=== PATIENT | male | born 1985 | race African-American/Black ===

== ENCOUNTER 2016-12-08 13:37 | Emergency (ER) | payer MEDICAID ==
[~2016-12-08] VITALS: Ht 167.6 cm; Wt 71.0 kg
[~2016-12-08 13:37] MED LIST: Z.0.NO CURRENT MEDS
[2016-12-08 13:38] VITALS: BP 137/74; PULSE 86; RESP 20; TEMP 98.7; O2SAT 100
[2016-12-08] MEDS ORDERED: RISP0.5T20 PO (14:34)
--- NOTE | 2016-12-08 14:37 | PD ---
HPI . left sided neck/jaw swelling and pain Chief Complaint: Facial Pain or Swelling Time Seen by Provider: 14:28 Travel History International Travel<30 days: No Contact w/Intl Traveler<30days: No Traveled to known affect area: No History of Present Illness HPI 31-year-old male with no significant PMH here accompanied by his mom and dad, who brought him in due to neck/jaw swelling x 2 days. They think something bit him. He is a man "of few words." He doesn't really have any complaints and was forced in by them. He denies any tooth pain, fever, chills, neck pain, sob, difficulty swallowing etc. PFSH Past Medical History Hx Anticoagulant Therapy: No Cardiovascular Problems: No Chemotherapy: No Cerebrovascular Accident: No Diabetes: No Diminished Hearing: No Respiratory: No Seizures: Yes (FORM OF EPILEPSY. SHAKES THEN SWEATS(?)) Social History Alcohol Use: Yes (HOLIDAYS) Tobacco Use: Yes (1 pack/day) Allergies-Medications (Allergen,Severity, Reaction): Coded Allergies: No Known Allergies (Verified Allergy, Mild, 10/02/06) Reported Meds & Prescriptions Reported Meds & Active Scripts Active Reported Risperdal (Risperidone) 0.5 Mg Tab 0.5 Mg PO DAILY Review of Systems General / Constitutional: No: Fever Eyes: No: Visual changes HENT: Positive: Other (neck swelling/jaw swelling), No: Headaches Cardiovascular: No: Chest Pain or Discomfort Respiratory: No: Shortness of Breath Gastrointestinal: No: Abdominal Pain Genitourinary: No: Dysuria Musculoskeletal: No: Pain Skin: No Rash Neurologic: No: Weakness Psychiatric: No: Depression Endocrine: No: Polydipsia Hematologic/Lymphatic: No: Easy Bruising Physical Exam Narrative GENERAL: AAO x 3, no acute distress, Well-nourished, well-developed patient. SKIN: Warm and dry. No visible rashes or bruising. HEAD: Normocephalic and atraumatic. EYES: No scleral icterus. No injection or drainage. EOM intact, PERRLA ENT: No nasal drainage noted. Mucous membranes pink. Airway patent. TM normal. no visible dental issues other than plaque buildup. no inner mouth abnormalities. NECK: Supple, trachea midline. No JVD. + post auricular/mandibular and submandibular swelling; very firm, tender to touch. 4 x 5 cm CARDIOVASCULAR: Regular rate and rhythm without murmurs, gallops, or rubs. RESPIRATORY: Breath sounds equal bilaterally. No accessory muscle use. No rhonchi or rales. GASTROINTESTINAL: Abdomen soft, non-tender, nondistended. EXTREMITIES: No cyanosis or edema. BACK: Nontender without obvious deformity. No CVA tenderness. PSYCH: AAO x 3, normal affect. Data Data Last Documented VS Vital Signs Date Time Temp Pulse Resp B/P Pulse Ox O2 Delivery O2 Flow Rate FiO2 12/08/16 13:38 98.7 86 20 137/74 100 Room Air MDM Medical Decision Making Medical Screen Exam Complete: Yes Emergency Medical Condition: Yes Medical Record Reviewed: Yes Differential Diagnosis parotid gland abscess, lymphadenopathy, neck mass/malignancy Narrative Course 31 yr old male here with neck/face swelling x 2 days. This appears to be a possible parotid gland abscess vs. neck mass. He needs a medical bed as further imaging is necessary. He may also need some labs. 1437: med bed requested 1453: discussed with Dr. Waters. The next provider will determine disposition. Condition: Stable Dannielle Baez December 08, 2016 14:37
--- NOTE | 2016-12-08 15:10 | PD ---
Physical Exam Narrative Patient was initially seen in fast track and transferred to medical bed. Please see present provider's H&P for further details. Briefly patient comes in for evaluation of painful swelling on the left side of his neck that began 2 days ago. Patient denies anything making it better. Pain is worse palpation. Patient denies doing anything for this. Patient describes pain as a burning like pain without radiation. Denies any fevers, nausea, vomiting, sore throat, difficulty swallowing, testicular pain, chest pain, shortness breath, or anything like this in the past. Patient reports only medication he takes regularly is Risperdal for bipolar schizophrenia. GENERAL: Well-developed, well nourished, in no acute distress, and non-ill appearing. SKIN: Focused skin assessment warm and dry. HEAD: Atraumatic. Normocephalic. EYES: Pupils equal and round. EOMI. No scleral icterus. No injection or drainage. ENT: No nasal bleeding or discharge. Mucous membranes pink and moist. Posterior pharynx erythematous without exudate. Uvula is midline. Swelling and tenderness noted over left parotid gland. There is no definitive fluid collection palpable. There is no crepitus. NECK: Trachea midline. No JVD. Supple. No nuclear rigidity. RESPIRATORY: No accessory muscle use. No respiratory distress. MUSCULOSKELETAL: No obvious deformities. No clubbing. No cyanosis. No edema. Full range of motion. NEUROLOGICAL: Awake and alert. No obvious cranial nerve deficits. Motor grossly within normal limits. Normal speech. PSYCHIATRIC: Appropriate mood and affect; insight and judgment normal. Data Data Last Documented VS Vital Signs Date Time Temp Pulse Resp B/P Pulse Ox O2 Delivery O2 Flow Rate FiO2 12/08/16 17:11 16 12/08/16 15:26 98 12/08/16 13:38 98.7 86 137/74 Room Air Orders Basic Metabolic Panel (Bmp) (12/08/16 15:01) Complete Blood Count With Diff (12/08/16 15:01) Prothrombin Time / Inr (Pt) (12/08/16 15:01) Act Partial Throm Time (Ptt) (12/08/16 15:01) Iv Access Insert/Monitor (12/08/16 15:01) Ecg Monitoring (12/08/16 15:01) Oximetry (12/08/16 15:01) Morphine Inj (Morphine Inj) (12/08/16 15:15) Ondansetron Inj (Zofran Inj) (12/08/16 15:15) Sodium Chloride 0.9% Flush (Ns Flush) (12/08/16 15:15) Ct Soft Tiss Neck W Iv Cont (12/08/16 ) Iohexol 350 Inj (Omnipaque 350 Inj) (12/08/16 16:09) Labs Laboratory Tests Test 12/08/16 15:25 White Blood Count 6.4 TH/MM3 Red Blood Count 4.36 MIL/MM3 Hemoglobin 13.1 GM/DL Hematocrit 39.3 % Mean Corpuscular Volume 90.3 FL Mean Corpuscular Hemoglobin 30.0 PG Mean Corpuscular Hemoglobin 33.2 % Concent Red Cell Distribution Width 13.8 % Platelet Count 272 TH/MM3 Mean Platelet Volume 8.1 FL Neutrophils (%) (Auto) 68.2 % Lymphocytes (%) (Auto) 22.4 % Monocytes (%) (Auto) 6.8 % Eosinophils (%) (Auto) 1.4 % Basophils (%) (Auto) 1.2 % Neutrophils # (Auto) 4.4 TH/MM3 Lymphocytes # (Auto) 1.4 TH/MM3 Monocytes # (Auto) 0.4 TH/MM3 Eosinophils # (Auto) 0.1 TH/MM3 Basophils # (Auto) 0.1 TH/MM3 CBC Comment DIFF FINAL Differential Comment Prothrombin Time 10.7 SEC Prothromb Time International 1.0 RATIO Ratio Activated Partial 29.3 SEC Thromboplast Time Sodium Level 140 MEQ/L Potassium Level 4.8 MEQ/L Chloride Level 105 MEQ/L Carbon Dioxide Level 28.0 MEQ/L Anion Gap 7 MEQ/L Blood Urea Nitrogen 16 MG/DL Creatinine 0.95 MG/DL Estimat Glomerular Filtration 111 ML/MIN Rate Random Glucose 84 MG/DL Calcium Level 8.6 MG/DL [facility] Supervised Visit with ANNETTA: No Interpretation(s) CT soft tissue neck read by the radiologist shows: No definite acute abnormality is seen. The patient does have a paucity of fat making evaluation difficult. Despite this, a fluid collection or significant adenopathy is not seen. Differential Diagnosis Abscess, cellulitis, parotitis, sialolithiasis, other Narrative Course Patient in no obvious distress upon re-evaluation. All pertinent laboratory/ Radiology result(s) discussed with patient/family. Discussed patient with Dr. Waters, who saw and evaluated the patient and is in agreement with plan of care and disposition. Any questions/concerns in reference to patient diagnosis/ condition discussed and clarified prior to patient's discharge. Reinforced sheer importance of close follow up with patient's primary physician or primary care clinic. Instructed patient to return to ED immediately, if symptoms return/ worsen. Pt showed understanding of above instructions. Further instructions and recommendations were detailed in discharge paperwork. Pt ambulated without difficulty out of ED at discharge. Diagnosis Primary Impression: Left facial swelling Referrals: Manny Manuel MD Patient Instructions: General Instructions Additional Instruction: Follow-up with your primary care physician and/or ENT in 2-3 days for reevaluation. Use [id number] Tylenol and/or ibuprofen as needed for pain control. Follow instructions on the packaging.. Return to the emergency department if symptoms get worse. Disposition: 01 DISCHARGE HOME Condition: Stable Edison Ken December 08, 2016 15:10
[2016-12-08] MEDS ORDERED: MORPHINE SULFATE 4 MG/ML INJ IV PUSH ONE (15:15)
[2016-12-08] MEDS ORDERED: ONDANSETRON HCL 4 MG/2 ML VIAL IVP ONE (15:15)
[2016-12-08] MEDS ORDERED: SODIUM CHLORIDE 0.9% FLUSH 10 ML FLUSH IV FLUSH PRN (15:15)
[2016-12-08 15:26] VITALS: O2SAT 98
[2016-12-08 15:48] LABS: AUTOMATED NEUTROPHIL # 4.4 TH/MM3 (1.8-7.7); BASOPHIL # 0.1 TH/MM3 (0-0.2); BASOPHIL % 1.2 % (0.0-2.0); EOSINOPHIL # 0.1 TH/MM3 (0-0.4); EOSINOPHIL % 1.4 % (0.0-4.0); HEMATOCRIT 39.3 % (39.0-51.0); HEMO FLAGS DIFF FINAL; LYMPH % 22.4 % (9.0-44.0); LYMPHOCYTE # 1.4 TH/MM3 (1.0-4.8); MEAN CELL VOLUME 90.3 FL (80.0-100.0); MEAN CORPUSCULAR HGB CONC 33.2 % (32.0-36.0); MONO % 6.8 % (0.0-8.0); NEUT % 68.2 % (16.0-70.0); PLATELET COUNT 272 TH/MM3 (150-450); RED BLOOD COUNT 4.36 MIL/MM3 (4.50-5.90); RED CELL DISTRIBUTION WIDTH 13.8 % (11.6-17.2); WHITE BLOOD COUNT 6.4 TH/MM3 (4.0-11.0)
[2016-12-08 16:06] LABS: POTASSIUM 4.8 MEQ/L (3.5-5.1)
[2016-12-08] MEDS ORDERED: IOHEXOL 350 MG/ML 10 ML VIAL (for RAD DIAG) IV ONE (16:09)
[2016-12-08 16:14] LABS: APTT (PATIENT) 29.3 SEC (24.3-30.1); PROTHROMBIN TIME - PATIENT 10.7 SEC (9.8-11.6)
--- NOTE | 2016-12-08 16:58 | RADRPT ---
EXAM DATE/TIME: 12/08/2016 16:09 [facility] COMPARISON: No previous studies available for comparison. INDICATIONS : Right facial pain and swelling for three days. IV CONTRAST: 67 cc Omnipaque 350 (iohexol) IV RADIATION DOSE: 12.02 CTDIvol (mGy) MEDICAL HISTORY : Seizures. SURGICAL HISTORY : None. ENCOUNTER: Initial ACUITY: 3 days PAIN SCALE: 6/10 LOCATION: Right face TECHNIQUE: Volumetric scanning of the neck was performed. Using automated exposure control and adjustment of th e mA and/or kV according to patient size, radiation dose was kept as low as reasonably achievable to obtain optimal diagnostic quality images. FINDINGS: NASOPHARYNX: The nasopharyngeal airway has a normal configuration. No mucosal thickening or mass is seen. OROPHARYNX: The intrinsic muscles of the tongue are symmetric. The tonsillar pillars are intact. The prevertebr al soft tissues are not thickened. LARYNX: The supraglottic, glottic, and infraglottic structures are intact. PARAPHARYNGEAL: The parapharyngeal space is intact. SALIVARY GLANDS: The parotid and submandibular glands are intact. LYMPH NODES: No enlarged or necrotic-appearing nodes. THYROID: Homogeneous enhancement without evidence of nodule. BONES: Unremarkable. Their is minimal air which likely reflects a vacuum phenomenon in the sternoclavicular joints. CONCLUSION: No definite acute abnormality is seen. The patient does have a paucity of fat making evaluation diffi cult. Despite this, a fluid collection or significant adenopathy is not seen. Duncan Calle MD on December 08, 2016 at 16:52 Board Certified Radiologist. This report was verified electronically.
[2016-12-08 17:11] VITALS: RESP 16
== END 2016-12-08 17:15 | disposition home or self-care (01) ==
LOC: NEPE 13:37
DX: R22.0 Localized swelling, mass and lump, head (principal); R22.1 Localized swelling, mass and lump, neck; R51 Headache
CPT/HCPCS: 70491; 80048; 85025; 85610; 85730; 96374; 96375; 99284; J2270; J2405; Q9967